=== PATIENT | male | born 1970 | race Caucasian/White ===

== ENCOUNTER 2020-10-16 11:27 | Inpatient (IN) | payer BC, SELFPAY ==
[2020-10-16] VITALS (11 sets, daily range): BP systolic 129–144; BP diastolic 74–90; PULSE 70–95; RESP 10–20; TEMP 36.2–36.8; O2SAT 93–98; BMI 30.2
--- NOTE | ~2020-10-16 | CT_ITS ---
EXAMINATION: CTA BRAIN/CAROTID DATE: 10/16/2020 14:22 INDICATION: Dizziness, nausea and vomiting TECHNIQUE: Computed tomographic angiography (CTA) of the head and neck was performed with 100 mL Omni paque-350 intravenous contrast. Multiplanar reconstructions and maximum intensity projection 3D-recon structions of the carotid arteries and of the intracranial arteries were created by the technologist on a separate workstation. Automated exposure control and iterative reconstruction technique were emp loyed.The dose-length product was 1229.56 mGy-cm. COMPARISON: CT neck dated 10/20/2018 FINDINGS: Carotid arteries: Visualized thoracic arch is normal in caliber with minimal calcified plaque and no dissection. No chiki dent atherosclerotic plaque with 0% stenosis of the right carotid bulb relative to normal distal lauri ry lumen diameter (NASCET criteria). There is also no evident atherosclerotic plaque with 0% stenosis of the left carotid bulb relative to normal distal artery lumen diameter. The cervical vertebral art eries are normal. Cervical soft tissues are unremarkable. Mild to moderate cervical spondylosis. Intracranial arteries Small amount of nonhemodynamically significant plaque at the bilateral carotid siphons. There is no h emodynamically significant stenosis in the vertebral, basilar and internal carotid arteries. Vertebra l arteries are codominant. There are no aneurysms identified. Both A1 and the right P1 segments are patent. Left posterior cerebral artery is supplied by the left internal carotid artery via a patent l eft posterior communicating artery. Cerebral arterial arborization appears symmetric. No abnormally e nhancing brain lesions. IMPRESSION: 1. 0% stenosis of the right and left carotid bulbs relative to normal distal artery lumen diameter (N ASCET criteria). 2. Normal cerebral angiogram with no aneurysms, dissection or significant stenosis. Reviewed, dictated and finalized at location A. IMPRESSION: 1. 0% stenosis of the right and left carotid bulbs relative to normal distal ar roselia lumen diameter (NASCET criteria). 2. Normal cerebral angiogram with no aneurysms, dissection or significant steno sis.
--- NOTE | ~2020-10-16 | XR_ITS ---
EXAMINATION: XR chest 1V DATE: 10/16/2020 12:39 INDICATION: Dizziness. TECHNIQUE: A single frontal view of the chest was obtained. COMPARISON: Chest 2 views 10/20/2018 FINDINGS: The chest demonstrates clear lungs without pneumonia, pleural effusion, or pneumothorax. Th e heart size is normal. IMPRESSION: 1. No acute cardiopulmonary disease. Reviewed, dictated and finalized at location A.
--- NOTE | ~2020-10-16 | CT_ITS ---
EXAMINATION: CT brain wo con INDICATION: Dizziness COMPARISON: None TECHNIQUE: Standard unenhanced head CT. The dose-length product (DLP) was 681.00 mGy-cm. The mA was a djusted according to patient size. Iterative reconstruction technique was employed. FINDINGS: There is no intracranial hemorrhage, acute infarction, or abnormal mass lesion. The ventric les are normal. There is no abnormal mass effect or midline shift. The bentley-white matter differentiat ion is normal. The basal cisterns are patent. The orbits are normal. There is mild mucosal thickening of the paranasal sinuses. IMPRESSION: 1. No acute intracranial abnormality. Reviewed, dictated and finalized at location B.
--- NOTE | ~2020-10-16 | MR_ITS ---
EXAMINATION: MR brain/brain stem wo/w con DATE: 10/17/2020 10:02 INDICATION: Vertigo. TECHNIQUE: Magnetic resonance imaging (MRI) of the brain and brainstem was performed without and with 16 mL MultiHance intravenous contrast. Sequences included sagittal and axial T1-weighted FSE, axial diffusion-weighted FS EPI, axial T2*-weighted GRE, axial T2-weighted FLAIR Propeller, and axial T2-we ighted Propeller. Postcontrast sequences included axial and coronal T1-weighted FSE. Apparent diffusi on coefficient (ADC) maps were created. COMPARISON: Head CT 10/16/2020 FINDINGS: There is a punctate acute infarct in posterior right medulla. There is no intracranial hemo rrhage or abnormal mass lesion. There are a few punctate scattered foci of increased T2-weighted sign al intensity in the cerebral white matter, which is normal for the patient's age. The ventricles are normal in size. The mastoid air cells are normal. There is mild mucosal thickening in the ethmoid sin uses. The orbits are normal. IMPRESSION: 1. 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 Reviewed, dictated and finalized at location A.
--- NOTE | 2020-10-16 11:44 | ECG_ITS ---
Measurements Intervals [place] Rate: 69 P: 5 TX: 154 QRS: 14 QRSD: 97 T: 1 QT: 396 QTc: 426 Interpretive Statements SINUS RHYTHM BORDERLINE T WAVE ABNORMALITY- INFERIOR LEADS BORDERLINE ECG Electronically Signed On 10-16-2020 12:09:58 CDT by Aubrey Quach D.O.
--- NOTE | 2020-10-16 12:11 | ED.DIZZY ---
HPI - Dizziness General Chief Complaint: Dizziness Stated Complaint: VERTIGO,N/V Time Seen by Provider: 10/16/20 12:02 Source: RN notes reviewed History of Present Illness HPI Narrative: Patient presents to emergency department from home for dizziness. Patient states he has dizziness with a feeling of the room spinning has been ongoing for the past 4 days states that the symptoms are worse when he gets up. He states that with this he has some mild tingling in the fingers in his right hand for the past 4 days but denies any weakness or any numbness or tingling in the remainder of the extremity just in the fingertips he denies any fevers or chills headache, vision changes, weakness to the extremities chest pain shortness of breath or any other symptoms Related Data Home Medications Medication Instructions Recorded Confirmed lisinopril 10/16/20 Allergies Allergy/AdvReac Type Severity Reaction Status Date / Time No Known Allergies Allergy Unknown other Verified 10/20/18 16:46 Review of Systems Review of Systems: Narrative: Gen.: Denies fevers or chills Eyes: Denies eye pain or visual change ENT: Denies congestion Respiratory: Denies shortness of breath or cough CV: Denies chest pain or palpitations GI: Denies abdominal pain reports nausea vomiting or dizziness Musculoskeletal: Denies back pain or muscle pain Neuro: Denies numbness, weakness or focal weakness reports dizziness Skin: Denies rash Except as documented, all other systems reviewed and negative [facility] Past Medical History Medical History (Updated 10/16/20 @ 16:24 by Zbigniew Hammer DO) Hypertension Social History Social History (Updated 10/16/20 @ 12:12 by Zbigniew Hammer DO) Smoking status: Never smoker Exam Narrative: Exam Narrative: APPEARANCE: No acute distress, nontoxic, resting in bed HEENT: Normocephalic, atraumatic, OMM, TMs clear bilaterally EYES: PERRL, EOMI NECK: Supple, nontender, full range of motion without pain, no meningismus RESPIRATORY: No respiratory distress, clear to auscultation bilaterally with no rhonchi wheezing or rales CARDIOVASCULAR: RRR s murmur ABDOMINAL: Soft, nontender, nondistended MUSCULOSKELETAL: Moves all extremities. No clubbing, cyanosis or edema. NEURO: A and O ?3, following commands, speech normal, cranial nerves II through XII grossly intact,muscle strength 5 out of 5 bilateral upper and lower extremities SKIN:: Warm, dry. Normal Color PSYCHIATRIC: Normal affect/mood Course Course Emergency Course: Patient given meclizine and Valium continues to have severe dizziness with attempting to ambulate Called discussed with DOTTY Ye for Dr. Garcia presentation work-up agrees with admission at this time Discussed with patient and family results of workup and diagnosis. Discussed need for admission. Patient and family understand and agree to current treatment plan Vital Signs Vital signs: Vital Signs Temperature 97.8 F 10/16/20 11:27 Pulse Rate 70 10/16/20 11:27 Respiratory Rate 16 10/16/20 11:27 Blood Pressure 144/83 H 10/16/20 11:27 Pulse Oximetry 96 10/16/20 11:27 Temperature 97.8 F 10/16/20 11:27 Pulse Rate 95 10/16/20 15:30 Respiratory Rate 19 10/16/20 15:30 Blood Pressure 140/76 10/16/20 12:16 Pulse Oximetry 94 10/16/20 15:30 MDM - Dizziness Lab Data Result diagrams: 10/16/20 12:27 10/16/20 12:27 Labs: Lab Results 10/16/20 10/16/20 Range/Units 12:27 12:27 WBC 10.3 H (4.5-10.0) K/mm3 RBC 5.65 (4.6-6.20) M/mm3 Hgb 16.9 (14.0-18.0) g/dL Hct 49.4 (42.0-52.0) % MCV 87.4 (80-100) fl MCH 29.9 (26-34) pg MCHC 34.2 (32-36) g/dl RDW 13.2 (11.5-14.5) % Plt Count 208 (150-375) k/mm3 MPV 8.9 (7.4-10.4) fl Immature Gran % (Auto) 0.8 H (0-0.5) % Neut % (Auto) 88.5 H (45.5-73.1) % Lymph % (Auto) 6.7 L (18.3-44.2) % Sequoyah % (Auto) 3.3 (2.6-8.5) % Eos % (Auto) 0.2 (0-4.4)
[2020-10-16] MEDS: SODIUM CHLORIDE 0.9% IV 1,000 ML 999 ML IV CONT (12:18)
[2020-10-16] MEDS: MECLIZINE HCL 25 MG TABLET PO (12:18)
[2020-10-16 12:37] LABS: Basophils Absolute Auto 0.1 K/mm3 (0.0-0.1); Basophils Percent Auto 0.5 % (0.2-1.2); Eosinophils Percent Auto 0.2 % (0-4.4); Hematocrit 49.4 % (42.0-52.0); Hemoglobin 16.9 g/dL (14.0-18.0); Immature Granulocyte Absolute 0.08 K/mm3 (0.00-0.031); Immature Granulocyte Percent A 0.8 % (0-0.5); Lymphocytes Absolute Auto 0.69 K/mm3 (0.9-3.2); Lymphocytes Percent Auto 6.7 % (18.3-44.2); Mean Corpuscular HGB Conc 34.2 g/dl (32-36); Mean Corpuscular Hemoglobin 29.9 pg (26-34); Mean Corpuscular Volume 87.4 fl (80-100); Mean Platelet Volume 8.9 fl (7.4-10.4); Monocytes Absolute Auto 0.3 K/mm3 (0.1-0.6); Monocytes Percent Auto 3.3 % (2.6-8.5); Neutrophils Absolute Auto 9.1 K/mm3 (1.3-6.7); Neutrophils Percent Auto 88.5 % (45.5-73.1); Platelet Count Result 208 k/mm3 (150-375); Red Blood Count 5.65 M/mm3 (4.6-6.20); Red Cell Distribution Width 13.2 % (11.5-14.5); White Blood Count 10.3 K/mm3 (4.5-10.0)
[2020-10-16 13:00] LABS: Alanine Aminotransferase 28 U/L (4-50); Albumin Level 4.2 g/dL (3.5-5.1); Alkaline Phosphatase 74 U/L (38-126); Anion Gap 9 mmol/L (8-16); Aspartate Amino Transferase 26 U/L (17-59); Bilirubin,Total 2.8 mg/dL (0.2-1.3); Blood Urea Nitrogen 20 mg/dL (9-20); Calcium 9.2 mg/dL (8.4-10.2); Carbon Dioxide 25 mmol/L (22-30); Chloride 106 mmol/L (98-107); Estimated CRCL calculation 66 ml/min; Estimated Glomerular Filt Rate > 60; Glucose 143 mg/dL (75-110); Potassium 4.3 mmol/L (3.4-5.0); Sodium 140 mmol/L (137-145)
[2020-10-16] MEDS: diazePAM (*CRX) 2 MG TABLET PO (13:30)
--- NOTE | 2020-10-16 14:27 | PC.NURSE ---
SPOKE WITH MELVI CLEVELAND REGARDING HER FAMILY MEMBER AND LET HER KNOW MR CLEVELAND WILL CALL HER WHEN HE GETS RESULTS FROM PHYSICIAN.
--- NOTE | 2020-10-16 17:25 | ADMGEN ---
This patient, Orlando Barry, was admitted to Medical Room 349-01. Patient/family oriented to hospital policies and general routines including ID bracelet, bed and alarms, visiting hours, pain management, procedures, bathroom and other care routines, personal items, smoking policy, room service/diet, and visiting hours. Information on how to activate the Rapid Response Team has been discussed. Patient/Family are encouraged to report perceived risks to care and to ask questions if they do not understand what they are told or what they should do.
--- NOTE | 2020-10-16 22:15 | PM.IMHP ---
H&P: HPI History of Present Illness Date/Time: 10/16/20 22:15 Chief Complaint: dizziness Narrative: 50-year-old male with past medical history of hypertension who presented to the ER for intractable dizziness. he reports that on Wednesday (4 days ago) he developed tingling of the tips of his fingers on his right hand associated with onset of lightheadedness / dizziness. He was sitting in chair when symptoms started. The patient reported after that time any time he was trying to stand up and walk he would walk to the side and had to hold on to something to walk in a straight line. He denied the actual room spinning but at the time of evaluation in the ER the patient had reported that the room has been spinning. He did have some associated nausea and vomiting with symptoms. His denied any diaphoresis. He denied any double vision or blurred vision. he reports that the symptoms felt better on cyst day 2 and 3 but worsened again on day 4. He subsequently decided to come to the ER for evaluation. He denies any headache. He has not noticed any weakness of any of ext extremities. He has not had difficulty with dropping objects. He denies difficulty with speech or thought process. He has continued to work throughout his symptoms. He does have chronic sinus congestion. He denies any loss of hearing, ear fullness or recent URI symptoms. he received meclizine and Valium in the ER without improvement in his symptoms. Review of Systems Review of Systems: Narrative: 12 systems were reviewed with pertinent positives and negatives per HPI. Except as documented in the HPI, all other systems were reviewed and are negative. [facility] Past Medical History Medical History (Updated 10/17/20 @ 03:06 by Minoo Wayne DO) Hypertension Obstructive sleep apnea Surgical History Surgical History (Updated 10/17/20 @ 03:06 by Minoo Wayne DO) History of oral surgery (~2019) due to dental abscess Family History Family History Mother Hypertension Father Hypertension Brain tumor Social History Social History (Updated 10/17/20 @ 03:09 by Minoo Wayne DO) Social History: he lives in [place] with his 18-year-old daughter. He is . He rarely drinks alcohol. He denies any history of tobacco or illicit substance use. 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 primary care physician: Dr. Kane Mon code status: Full code (no advance directives in place) Smoking status: Never smoker Alcohol intake: never Substance use: never Substance use type: does not use Gender identity (if verbalized by the patient): Male Spiritual care concerns: No Meds Home Medications and Allergies Home Medications Medication Instructions Recorded Confirmed Type lisinopril 20 mg PO DAILY 10/16/20 10/16/20 History Allergies Allergy/AdvReac Type Severity Reaction Status Date / Time No Known Allergies Allergy Unknown other Verified 10/16/20 17:21 Vital Signs Vital Signs - 24 hr 10/16/20 11:27 10/16/20 11:42 10/16/20 11:46 Temperature 97.8 F Pulse Rate 70 70 71 Respiratory Rate 16 17 10 L Blood Pressure 144/83 H 144/83 H 136/86 Pulse Oximetry 96 93 98 10/16/20 12:16 10/16/20 13:30 10/16/20 14:15 Temperature Pulse Rate 75 84 90 Respiratory Rate 18 16 20 Blood Pressure 140/76 Pulse Oximetry 95 96 96 10/16/20 15:30 10/16/20 16:30 10/16/20 18:00 Temperature 97.2 F L Pulse Rate 95 92 85 Respiratory Rate 19 16 18 Blood Pressure 141/90 H 140/86 Pulse Oximetry 94 96 96 10/16/20 21:10 Temperature 98.3 F Pulse Rate 81 Respiratory Rate 18 Blood Pressure 129/74 Pulse Oximetry 96 Exam Narrative: Exam Narrative: PHYSICAL EXAM: WEIGHT 85 kg BMI 30.2 General: No acute distress, well-developed well-nourished HEENT: mucous membranes are moist, no oral pharyngeal erythema, no scleral icterus,
[2020-10-17] VITALS (12 sets, daily range): BP systolic 135–142; BP diastolic 77–91; PULSE 69–97; RESP 17–18; TEMP 36.4–36.6; O2SAT 95–100
--- NOTE | 2020-10-17 | ECHO_ITS ---
Patient Info Name: Orlando Barry Age: 50 years : 1970 Gender: Male Ht: 66 in Wt: 187 lbs BSA: 2.01 m2 HR: 90 bpm BP: 135 / 77 mmHg Heart Rhythm: Sinus Rhythm Technical Quality: Good Exam Date: 10/17/2020 2:17 PM Exam Location: [facility] Patient Status: Inpatient Admit Date: 10/16/2020 Staff Ordering Physician: Jesus Minor MD Photography Assistant: Trent Samson, RONNIE, RT Attending Provider: Harjinder Garcia MD Exam Type: CA echo dop color flow w con Study Info Indications I63.239 - Cerebral infarction due to unspecified occlusion or stenosis of unspecified carotid arteries Complete two-dimensional, color flow and Doppler transthoracic echocardiogram is performed. Strain analysis performed. Summary 1. Complete two-dimensional, color flow and Doppler transthoracic echocardiogram is performed. 2. Hyperdynamic left ventricular systolic function. 3. No valvular abnormalities. 4. No likely cardioembolic source was identified. Left Ventricle Left ventricular chamber dimension is normal. Left ventricular systolic function is hyperdynamic, estimated at >70%. The left ventricular diastolic function is normal. Right Ventricle Right ventricular chamber dimension is normal. Left Atria Left atrial chamber dimension is normal. Right Atria Right atrial chamber dimension is normal. Aortic Valve The aortic valve is normal. Pulmonic Valve The pulmonic valve is normal. Mitral Valve The mitral valve has normal leaflets. Tricuspid Valve The tricuspid valve leaflets are normal. Pericardium/Pleural The pericardium appears normal. Aorta The aortic root size at the sinus of Valsalva is normal. Report Signatures
[2020-10-17 06:27] LABS: Basophils Percent Auto 0.5 % (0.2-1.2); Eosinophils Absolute Auto 0.1 K/mm3 (0-0.3); Eosinophils Percent Auto 1.1 % (0-4.4); Hematocrit 44.9 % (42.0-52.0); Hemoglobin 15.2 g/dL (14.0-18.0); Immature Granulocyte Absolute 0.06 K/mm3 (0.00-0.031); Immature Granulocyte Percent A 0.8 % (0-0.5); Lymphocytes Absolute Auto 1.83 K/mm3 (0.9-3.2); Lymphocytes Percent Auto 23.3 % (18.3-44.2); Mean Corpuscular HGB Conc 33.9 g/dl (32-36); Mean Corpuscular Hemoglobin 29.6 pg (26-34); Mean Corpuscular Volume 87.5 fl (80-100); Monocytes Absolute Auto 0.6 K/mm3 (0.1-0.6); Monocytes Percent Auto 7.9 % (2.6-8.5); Neutrophils Absolute Auto 5.2 K/mm3 (1.3-6.7); Neutrophils Percent Auto 66.4 % (45.5-73.1); Platelet Count Result 226 k/mm3 (150-375); Red Blood Count 5.13 M/mm3 (4.6-6.20); White Blood Count 7.8 K/mm3 (4.5-10.0)
[2020-10-17 06:56] LABS: Anion Gap 8 mmol/L (8-16); Blood Urea Nitrogen 18 mg/dL (9-20); Calcium 8.9 mg/dL (8.4-10.2); Carbon Dioxide 26 mmol/L (22-30); Chloride 107 mmol/L (98-107); Estimated CRCL calculation 62 ml/min; Estimated Glomerular Filt Rate 58; Glucose 95 mg/dL (75-110); Potassium 4.2 mmol/L (3.4-5.0); Sodium 141 mmol/L (137-145)
--- NOTE | 2020-10-17 07:47 | PM.IMPN ---
Progress Note: A&P Assessment and Plan (1) Vertigo: Code(s): R42 - Dizziness and giddiness Status: Acute Assessment and Plan: continues to have significant vertigo with ambulation. not feeling safe to drive or ambulate further distances without hands-on assistance having impaired balance with vertigo. CT head was normal. CTA neck and head showed small amount of nonhemodynamically significant plaque at the bilateral carotid siphons. 1. 0% stenosis of the right and left carotid bulbs relative to normal distal artery lumen diameter.. 2. Normal cerebral angiogram with no aneurysms, dissection or significant stenosis. 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 Neurology was consulted. Aspirin was started echo ordered. check a fasting lipid panel check orthostatic vital signs. (2) Paresthesias in right hand: Code(s): R20.2 - Paresthesia of skin Status: Acute Assessment and Plan: Orlando continues to have significant paresthesia of his right hand particularly at the finger tips of all 5 digits. 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 Neurology was consulted. Aspirin was started echo ordered. added telemetry monitoring. Ordered PT/OT evaluation (3) Dehydration: Code(s): E86.0 - Dehydration Status: Acute Assessment and Plan: improving on his Dehydration, Severe nausea and vomiting at home no nausea or vomiting today. tolerating oral foods and oral liquids well. currently not on IV fluids. urinating and voiding without difficulty but did admit that his urine is still darker than it should be. Encouraged him to continue improving his oral hydration and will check with him again tomorrow. Subjective Date/time seen: 10/17/20 07:47 Orlando continues to have significant paresthesia of his right hand particularly at the finger tips of all 5 digits. He also continues to have significant vertigo with ambulation. He is not feeling safe to drive or ambulate further distances without hands-on assistance. He is having impaired balance with vertigo. 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 Neurology was consulted. Aspirin was started and an echo ordered. CT head was normal. Will check a fasting lipid panel and set of orthostatic vital signs. CTA neck and head showed small amount of nonhemodynamically significant plaque at the bilateral carotid siphons. There is no hemodynamically significant stenosis in the vertebral, basilar and internal carotid arteries. Vertebral arteries are codominant. There are no aneurysms identified.No abnormally enhancing brain lesions. 1. 0% stenosis of the right and left carotid bulbs relative to normal distal artery lumen diameter.. 2. Normal cerebral angiogram with no aneurysms, dissection or significant stenosis. He denies any fevers at home, denies any history of positive COVID test or COVID infection, he denies any head trauma, and denies any history of neurological deficits prior. His mother has a history of hypertension and a stroke in her 60s, she is still alive. His father in his 70s with a brain tumor. He is improving on his Dehydration, with no nausea or vomiting today. He is tolerating oral foods and oral liquids well. He is currently not on IV fluids. He is urinating and voiding without difficulty but did admit that his urine is still darker than it should be. Encouraged him to continue improving his oral hydration and will check with him again tomorrow. Review of Systems Review of Systems: All systems reviewed & are unremarkable except as noted in HPI and below Constitutional: Constitutional: Reports as per HPI, Denies excessive sweating, Denies headache(s), Denies increased appetite, Denies snoring and Denies weight gain Eyes: Eyes: Reports as per HPI, Denies exophthalmos, Sourav
--- NOTE | 2020-10-17 08:46 | PC.NURSE ---
Patient taken to MRI by wheelchair.
[2020-10-17] MEDS: ASPIRIN 81 MG CHEWABLE TABLET PO (13:41)
--- NOTE | 2020-10-17 14:51 | PCOTNOTE ---
Attempted OT evaluation, but unable to complete as patient having an ECHO. Will attempt again at another time.
[2020-10-17] MEDS: PERFLUTREN LIPID MICROSPHERES 1.5 ML VIAL DILUTED TO 10 ML TOTAL VOLUME IV PUSH (15:10)
[2020-10-17] MEDS: lisinopriL 20 MG TABLET PO (16:01)
[2020-10-17] MEDS: CALCIUM CARBONATE (TUMS) 500 MG (200 MG ELEMENTAL) PO (20:03)
[2020-10-18] VITALS (9 sets, daily range): BP systolic 120–136; BP diastolic 71–91; PULSE 67–88; RESP 16–18; TEMP 35.9–36.2; O2SAT 98–100
[2020-10-18 05:49] LABS: Basophils Absolute Auto 0.1 K/mm3 (0.0-0.1); Basophils Percent Auto 0.6 % (0.2-1.2); Eosinophils Absolute Auto 0.1 K/mm3 (0-0.3); Eosinophils Percent Auto 1.6 % (0-4.4); Hematocrit 45.9 % (42.0-52.0); Immature Granulocyte Absolute 0.04 K/mm3 (0.00-0.031); Immature Granulocyte Percent A 0.5 % (0-0.5); Lymphocytes Absolute Auto 1.75 K/mm3 (0.9-3.2); Mean Corpuscular HGB Conc 34.9 g/dl (32-36); Mean Corpuscular Hemoglobin 30.3 pg (26-34); Mean Corpuscular Volume 86.9 fl (80-100); Monocytes Absolute Auto 0.6 K/mm3 (0.1-0.6); Monocytes Percent Auto 7.4 % (2.6-8.5); Neutrophils Absolute Auto 5.4 K/mm3 (1.3-6.7); Neutrophils Percent Auto 67.9 % (45.5-73.1); Platelet Count Result 219 k/mm3 (150-375); Red Blood Count 5.28 M/mm3 (4.6-6.20); Red Cell Distribution Width 12.7 % (11.5-14.5); White Blood Count 7.9 K/mm3 (4.5-10.0)
[2020-10-18 05:59] LABS: Alanine Aminotransferase 33 U/L (4-50); Alkaline Phosphatase 62 U/L (38-126); Anion Gap 7 mmol/L (8-16); Aspartate Amino Transferase 31 U/L (17-59); Bilirubin,Total 1.8 mg/dL (0.2-1.3); Blood Urea Nitrogen 16 mg/dL (9-20); Calcium 9.4 mg/dL (8.4-10.2); Carbon Dioxide 27 mmol/L (22-30); Chloride 104 mmol/L (98-107); Cholesterol 144 mg/dL (0-200); Estimated CRCL calculation 66 ml/min; Estimated Glomerular Filt Rate > 60; Glucose 94 mg/dL (75-110); HDL Direct 26 mg/dL; Potassium 4.1 mmol/L (3.4-5.0); Sodium 138 mmol/L (137-145); Triglycerides 117 mg/dL (<150)
[2020-10-18 06:28] LABS: LDL Cholesterol Direct 89 mg/dL
[2020-10-18 06:57] LABS: Vitamin D 25 Hydroxy 46.4 ng/mL
[2020-10-18 07:11] LABS: Thyroid Stimulating Hormone Reflex 0.722 uIU/mL (0.465-4.68)
--- NOTE | 2020-10-18 10:04 | WPDNEURCNPN ---
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 has been admitted to the hospital through the emergency room for the complaints of intractable dizziness in addition to the history of tingling of the tips of his fingers on the right associated with lightheadedness and dizziness while he was sitting in his chair and subsequently having difficulties in standing and walking without any vertiginous complaints but complained of some nausea and vomiting he gave no history of diplopia he had no motor weakness his past history is consistent with hypertension obstructive sleep apnea oral surgery no smoking or drinking Review of Systems Review of Systems: All systems reviewed & are unremarkable except as noted in HPI and below PMFSH Past Medical History Medical History Hypertension Obstructive sleep apnea Surgical History Surgical History History of oral surgery (~2019) due to dental abscess Family History Family History Mother Hypertension Father Hypertension Brain tumor Social History Social History Social History: he lives in [place] with his 18-year-old daughter. He is . He rarely drinks alcohol. He denies any history of tobacco or illicit substance use. 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 primary care physician: Dr. Kane Mon code status: Full code (no advance directives in place) Smoking status: Never smoker Alcohol intake: never Substance use: never Substance use type: does not use Gender identity (if verbalized by the patient): Male Spiritual care concerns: No Meds Home Medications and Allergies Home Medications Medication Instructions Recorded Confirmed Type lisinopril 20 mg PO DAILY 10/16/20 10/16/20 History Allergies Allergy/AdvReac Type Severity Reaction Status Date / Time No Known Allergies Allergy Unknown other Verified 10/16/20 17:21 Vital Signs Vital Signs - 24 hr 10/17/20 12:00 10/17/20 12:02 10/17/20 16:00 Temperature Pulse Rate 97 90 Respiratory Rate Blood Pressure Pulse Oximetry 95 10/17/20 16:02 10/17/20 16:03 10/17/20 16:04 Temperature Pulse Rate 73 89 73 Respiratory Rate 18 Blood Pressure 137/83 142/91 H 137/83 Pulse Oximetry 99 10/17/20 19:32 10/17/20 20:00 10/18/20 00:00 Temperature 36.4 C Pulse Rate 89 78 70 Respiratory Rate 17 Blood Pressure 141/89 H Pulse Oximetry 99 10/18/20 04:00 10/18/20 04:14 Temperature 36.2 C L Pulse Rate 67 86 Respiratory Rate 18 Blood Pressure 123/79 Pulse Oximetry 100 Exam Narrative: Exam Narrative: exam today is consistent with him being awake alert cooperative in no obvious acute distress head normocephalic, ear nose throat examination normal, neck supple with no cervical bruit no thyromegaly no lymphadenopathy, heart regular with no murmur, lungs clear to auscultation and no rhonchi or crepitations , abdomen is soft with no organomegaly, neurological examination revealed him to be awake alert oriented x3 his speech nor dysphasic no dysarthric not dysphonic pupils round regular feels the vision full extraocular moves full with no nystagmus, face symmetric tongue midline motor examination revealed him to have no drift from 1 side other side reflex
[2020-10-18] MEDS: lisinopriL 20 MG TABLET PO (10:20)
[2020-10-18] MEDS: ASPIRIN 81 MG CHEWABLE TABLET PO (10:20)
[2020-10-18] MEDS: CLOPIDOGREL BISULFATE 75 MG TABLET PO (14:27)
--- NOTE | 2020-10-18 14:35 | PM.DS ---
DS: Admitting Diagnosis Admitting Diagnosis Admitting Diagnosis: Parasthesia N/V/Light-headedness DS: Discharge Diagnosis Discharge Diagnosis (1) Vertigo: Code(s): R42 - Dizziness and giddiness Status: Acute Assessment and Plan: continues to have significant vertigo with ambulation. not feeling safe to drive or ambulate further distances without hands-on assistance having impaired balance with vertigo. CT head was normal. CTA neck and head showed small amount of nonhemodynamically significant plaque at the bilateral carotid siphons. 1. 0% stenosis of the right and left carotid bulbs relative to normal distal artery lumen diameter.. 2. Normal cerebral angiogram with no aneurysms, dissection or significant stenosis. 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 Neurology was consulted - appreciate DR. Minor. 325 mg Aspirin, 75mg Plavix, 40mg Lipitor was started echo EF 70%, no valvular disease. normal fasting lipid panel orthostatic vital signs WNL. (2) Paresthesias in right hand: Code(s): R20.2 - Paresthesia of skin Status: Acute Assessment and Plan: [place] continues to have significant paresthesia of his right hand particularly at the finger tips of all 4 digits. 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 Neurology will see patient after discharge. Aspirin/Plavix/STatin was started echo WNL. added telemetry monitoring. PT/OT evaluation completed, patient ambulated in hallway without assistance (3) Dehydration: Code(s): E86.0 - Dehydration Status: Acute Assessment and Plan: resolved Dehydration, Severe nausea and vomiting - resolved no nausea or vomiting today. tolerating oral foods and oral liquids well. currently not on IV fluids. urinating and voiding without difficulty Encouraged him to continue improving his oral hydration DS: Summary Hospital Course Hospital Course: Patient was rehydrated with IVFs, CT head/neck, ECHO, MRI completed, showing new CVA, PT evaluated, started on 325 mg ASA, 75mg Plavix, and 40mg Lipitor, and patient will follow up with Neurologist. Time Spent with Patient Time attestation: Total time spent providing and/or coordinating discharge services:45 minutes Exam Narrative: Exam Narrative: PHYSICAL EXAM: WEIGHT 85 kg BMI 30.2 General: No acute distress, well-developed well-nourished HEENT: mucous membranes are moist, no oral pharyngeal erythema, no scleral icterus, no conjunctival pallor, head is normocephalic atraumatic, loss of light reflex in left tympanic membrane with evidence of fluid, no erythema, normal right flexor right tympanic membrane Respiratory: clear to auscultation bilaterally, no increased work of breathing Cardiovascular: regular rate, regular rhythm, no murmurs, 2+ bilateral radial pedal pulses Gastrointestinal: soft, nontender, nondistended, positive bowel sounds, severe N/V with standing and ambulation. Skin: no jaundice, no pallor Musculoskeletal: no clubbing, cyanosis or edema, 5/5 head of conservation strength bilaterally, 5/5 strength on plantar flexion and dorsiflexion Neurological: reported paresthesias to the tips the 4 fingers of the right hand with the thumb completely spared, cranial nerves 2-12 appear to be grossly intact, speech is clear, no facial asymmetry, no gross motor deficits noted on exam, rapid alternating movements intact, no dysmetria Psychiatric: appropriate mood and affect, pleasant and cooperative : deferred Hematologic/lymphatic: no petechiae, no bruising, no anterior cervical or submandibular lymphadenopathy Neuro: Cranial nerves: Yes Normal hearing present DS: Data Data Completed and Pending Labs on day of discharge: Labs from last 24 hours 10/18/20 10/18/20 10/18/20 05:19 05:19 05:19 WBC 7.9 RBC 5.28 Hgb 16.0 Hct 45.9 MCV 86.9 MCH 30.3 MCHC 34.9 RDW 12.7 Plt C
== END 2020-10-18 15:30 | disposition home or self-care (01) | DRG 66 ==
LOC: ANHED 16:24 → ANH3MED 16:49
PROVIDERS: Admitting Provider Internal Medicine; Emergency Provider Emergency Medicine; PCP Family Medicine Adolescent Medicine; Visit Provider Nurse Practitioner
DX: I63.9 Cerebral infarction, unspecified (principal); R42 Dizziness and giddiness; R20.2 Paresthesia of skin; R29.700 NIHSS score 0; I10 Essential (primary) hypertension; E86.0 Dehydration; G47.33 Obstructive sleep apnea (adult) (pediatric); Z79.899 Other long term (current) drug therapy
CPT/HCPCS: 36415; 70450; 70496; 70498; 70553; 71045; 80048; 80053; 80061; 82306; 82607; 82746; 84443; 85025; 93005; 93306; 96360; 96361; 96374; 97110; 97161; 97165; 99285; A9270; A9577; C8929; G0378; J7030; Q9957; Q9967

== ENCOUNTER 2024-05-08 01:25 | Day surgery (SDC) | payer BC, SELFPAY ==
[2024-04-21 12:43] VITALS: BMI 29.9
[2024-05-08 07:35] VITALS: BP 137/88; PULSE 89; RESP 18; TEMP 36.2; O2SAT 99; BMI 31.5
[2024-05-08] MEDS: LACTATED RINGERS 1,000 ML 150 ML IV CONT (07:57)
--- NOTE | 2024-05-08 08:25 | P.HP_ITS ---
H&P: HPI History of Present Illness Date/Time: 05/08/24 08:25 Chief Complaint: excessive belching-screening colonoscopy Narrative: the patient has approximately 6 months of continuous and excessive belching, in the absence of dysphagia, heartburn, regurgitation, nausea, vomiting or unintended weight loss. In addition he never had a colonoscopy and is due for his 1st screening colonoscopy. There is no family history of colorectal cancer Review of Systems Review of Systems: All systems reviewed & are unremarkable except as noted in HPI and below PMFSH Past Medical History Medical History (Updated 04/14/24 @ 10:13 by ANDREE Manning) Heartburn Brainstem stroke Gilbert's syndrome Obstructive sleep apnea Hypertension Surgical History Surgical History History of oral surgery (~2018) due to dental abscess Family History Family History Mother Hypertension Father Hypertension Brain tumor Social History Social History Social History: he lives in [place] with his 18-year-old daughter. He is . He rarely drinks alcohol. He denies any history of tobacco or illicit substance use. 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 primary care physician: Dr. Kane Mon code status: Full code (no advance directives in place) Smoking status: Never smoker Alcohol intake: never Substance use: never Substance use type: does not use Lack of Transportation: No Lack of Food: Never True Current Housing: I Have Housing Concerned About Future Housing: No Difficulty Paying Gas/Electric Bills: No Difficulty Paying for Meds: No Currently Unemployed: No Education: High School Diploma/GED Difficulty w/ Childcare or Family Care: No Living arrangements: alone Gender identity (if verbalized by the patient): Male Spiritual care concerns: No Meds Home Medications and Allergies Home Medications ?Medication ?Instructions ?Recorded ?Confirmed ?Type aspirin 81 mg tablet,delayed 81 mg PO DAILY 02/03/22 05/08/24 History release (Adult Low Dose Aspirin) lisinopril 10 mg tablet See Rx Instructions .Route 02/28/24 05/08/24 Rx .COMPLEX #90 tabs atorvastatin 40 mg tablet See Rx Instructions .Route 03/02/24 05/08/24 Rx .COMPLEX #90 tabs pantoprazole 40 mg tablet,delayed 40 mg PO DAILY #90 tabs 03/02/24 05/08/24 Rx release Allergies Allergy/AdvReac Type Severity Reaction Status Date / Time No Known Allergies Allergy Unknown other Verified 05/08/24 07:44 Vital Signs Vital Signs - 24 hr 05/08/24 07:35 Temperature 97.2 F L Pulse Rate 89 Respiratory Rate 18 Blood Pressure 137/88 Pulse Oximetry 99 Oxygen Delivery Room Air Exam Const: General: cooperative and healthy appearing Resp: Effort & Inspection: normal respiratory effort and able to speak in complete sentences Auscultation: clear to auscultation bilaterally Cardio: Rate: regular rate Rhythm: regular rhythm GI: Inspection: normal to inspection GI Palp: No No hepatosplenomegaly present Auscultation: normal bowel sounds Rectal Exam: deferred Skin: General skin exam: normal color Psych: Appearance: grossly normal Mental Status: mental status grossly normal Assessment and Plan Assessment and plan (1) Belching symptom: Code(s): R14.2 - Eructation Status: Acute Assessment and Plan: The patient is deemed a good candidate for the procedures. Consent signed. Will proceed. (2) Colon cancer screening: Code(s): Z12.11 - Encounter for screening for malignant neoplasm of colon Status: Acute
--- NOTE | 2024-05-08 09:13 | SUR.OPER ---
EGD: start 900, end 906 Colonoscopy: start 912, end 931
[2024-05-08 09:36] VITALS: BP 113/82; PULSE 84; RESP 22; O2SAT 100
[2024-05-08 09:46] VITALS: BP 128/83; PULSE 78; RESP 16; O2SAT 99
[2024-05-08 09:56] VITALS: BP 130/85; PULSE 71; RESP 20; O2SAT 97
--- OUTSIDE RECORDS SUMMARY | 2024-05-11 11:11 | XMS_ITS | Clinical Summary ---
Author Organization [facility] [employer] Address [address] [place] [address] Care Team Providers Care Dam Operator Name Role Phone Unavailable Primary Care Provider Unavailabl e Source Comments [facility] [employer],non-owned Affiliates and Associated Physician Practices is amultiple site organization consisting of ambulatory clinics and hospital sitesin [place], [place], [place] and [place]. This disclosure is being madepursuant to the Care Everywhere program and may not contain all information available regarding this patient. Last updated 18.[facility] [employer] Active Problems Problem Noted Date Diagnosed Date Sepsis 10/20/2018 Social History Tobacco Use Types Packs/Day Years Used Date Smoking Tobacco: Never Assessed Sex and Gender Information Value Date Recorded Sex Assigned at Not on file Gender Identity Not on file Sexual Orientation Not on file Plan of Treatment Health Maintenance Due Date Last Done Comments COLOGUARD (AGES 45-75) - COL ON CA SCREENING 1969 COLON MONITORING 1969 COLONOSCOPY - COLON CA SCREENING 1969 CT COLONOGRAPHY - COLON CA SCREENING 1969 Colorectal Cancer Screening 1969 FIT - COLON CA SCREENING 1969 FLEX SIG - COLON CA SCREENING 1969 LIPID TESTING 1969 HIV SCREENING 1984 HEPATITIS C SCREENING 03/22/1987 DTAP/TDAP/TD VACCINES (1 - Tdap) 1988 HEPATITIS B VACCINE (1 of 3 - 19+ 3-dose series) 1988 PNEUMOCOCCAL VACCINE 50+ (1 of 1 - PCV) 2019 ZOSTER VACCINE (1 of 2) 2019 COVID-19 VACCINE ( - 2023-2 5 season) 2023 INFLUENZA VACCINE (#1) 2023 DEPRESSION SCREENING 04/19/2024 HIB VACCINE Aged Out No longer eligi ble based on patient's age to complete this topic HPV VACCINE Aged Out No longer eligi ble based on patient's age to complete this topic MENINGOCOCCAL (Group B) VACCINE Aged Out No longer eligible based on patient's age to complete this topic MENINGOCOCCAL VACCINE Aged Out No luly danisha eligible based on patient's age to complete this topic PNEUMOCOCCAL VACCINE Aged Out No long er eligible based on patient's age to complete this topic
--- OUTSIDE RECORDS SUMMARY | 2024-05-11 11:11 | XMS_ITS | Patient Health Summary ---
Author Organization [facility] Address [address] [place] [address] Care Team Providers Care Drapery And Upholstery Estimator Name Role Phone Unavailable Primary Care Provider Unavailabl e Note from [facility],non-owned Affiliates and Associated Physician Practices is amultiple site organization consisting of ambulatory clinics and hospital sitesin [place], [place], [place] and [place]. This disclosure is being madepursuant to the Care Everywhere program and may not contain all information available regarding this patient. Last updated 18.[facility] Active Problems Problem Noted Date Diagnosed Date Sepsis 10/20/2018 Social History Tobacco Use Types Packs/Day Years Used Date Smoking Tobacco: Never Assessed Sex and Gender Information Value Date Recorded Sex Assigned at Not on file Gender Identity Not on file Sexual Orientation Not on file
--- OUTSIDE RECORDS SUMMARY | 2024-05-11 11:11 | XMS_ITS | Referral Summary ---
Author Organization [facility] Address [address] [place] [address] Care Team Providers Care Fabric Separator Operator Name Role Phone Unavailable Primary Care Provider Unavailabl e Source Comments [facility],non-owned Affiliates and Associated Physician Practices is amultiple site organization consisting of ambulatory clinics and hospital sitesin [place], [place], [place] and [place]. This disclosure is being madepursuant to the Care Everywhere program and may not contain all information available regarding this patient. Last updated 18.[facility] Active Problems Problem Noted Date Diagnosed Date Sepsis 10/20/2018 Social History Tobacco Use Types Packs/Day Years Used Date Smoking Tobacco: Never Assessed Sex and Gender Information Value Date Recorded Sex Assigned at Not on file Gender Identity Not on file Sexual Orientation Not on file Plan of Treatment Not on file
== END 2024-05-08 10:09 | disposition home or self-care (01) ==
PROVIDERS: PCP Family Medicine Adolescent Medicine; Visit Provider Internal Medicine Gastroenterology
PROC: 0DJ08ZZ Inspection of Upper Intestinal Tract, Via Natural or Artificial Opening Endoscopic (ICD-10-PCS; CPT 45378; principal; 2024-05-08 09:00)
DX: Z12.11 Encounter for screening for malignant neoplasm of colon (principal); D12.3 Benign neoplasm of transverse colon; D12.2 Benign neoplasm of ascending colon; D12.4 Benign neoplasm of descending colon; K63.5 Polyp of colon; K64.8 Other hemorrhoids; K57.30 Diverticulosis of large intestine without perforation or abscess without bleeding; K44.9 Diaphragmatic hernia without obstruction or gangrene; I10 Essential (primary) hypertension; G47.33 Obstructive sleep apnea (adult) (pediatric); E80.4 Gilbert syndrome; Z79.82 Long term (current) use of aspirin; Z98.890 Other specified postprocedural states; Z86.73 Personal history of transient ischemic attack (TIA), and cerebral infarction without residual deficits
CPT/HCPCS: 43239; 45385; 88305; J2003; J2704; J7120

== ENCOUNTER 2024-10-03 14:31 | Outpatient (RCR) | payer BC, SELFPAY ==
--- NOTE | 2024-10-03 15:47 | OPREHPOC ---
Outpatient Therapy Plan of Care This is a Multidisciplinary Plan of Care that may contain components documented by all disciplines (PT, OT, and ST.)
--- NOTE | 2024-10-03 15:47 | STOPEVAL1 ---
Assessment and note entered by Shannan Felton, PHARMACEUTICAL SALES SPECIALIST Evaluation Information Assessment Status Evaluation Diagnosis R14.2 Subjective Information The patient is a 54 year old male with history of eructation for approximately 1 year. Per the patient onset began a few months prior to the onset of his reflux. Medication management has been attempted with varying medications. He reports the reflux is currently managed by his current medication but the the frequent belching has been unchanged. He reports no history of swallowing difficulties or pneumonia. 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 Per the patient onset began a few months prior to the onset of his reflux. Medication management has been attempted with varying medications. He reports the reflux is currently managed by his current medication but the the frequent belching has been unchanged. He reports no history of swallowing difficulties or pneumonia. He does have some coughing 2 to 3 times a week first thing in the mornings. The patient was assessed with various textures to assess swallow function and r/ o aspiration risk. Oral Stage: timely oral preparation and transit all consistencies. Pharyngeal Stage: Timely swallow initiation no clinical signs of aspiration. Patient did have intermittent belching during course of evaluation. The patient states he has attempted diaphragmatic breathing without success. At this time no speech services or indicated or appear of benefit. Plan of Care ST Services Indicated No These treatments will address the objective and functional deficits as defined above. The patient will be advanced safely and appropriately in order for the patient to progress towards his/her prior level of function. Additional exercises will be introduced and as well as a comprehensive home exercise program upon discharge, if needed, ?to ensure carryover of functional gains achieved in the clinic. This treatment plan has been reviewed and agreement upon by the patient.
== END 2024-10-10 09:39 | disposition home or self-care (01) ==
LOC: ANHST 14:31
PROVIDERS: PCP Family Medicine Adolescent Medicine; Visit Provider Nurse Practitioner Family
DX: R14.2 Eructation (principal)
CPT/HCPCS: 92610